=== PATIENT | female | born 1950 | race African-American/Black ===

== ENCOUNTER → 2016-07-20 | Outpatient (CLI) | payer MEDICARE, OTHER ==
--- NOTE | 2016-07-20 15:42 | KCIC ---
PROCEDURE Thyroid ultrasound. HISTORY Follow up thyroid nodule. COMPARISON Thyroid ultrasound, October 13, 2015. TECHNIQUE Real-time ultrasound imaging of the thyroid gland is performed. FINDINGS All measurements in length, AP, and transverse dimensions, respectively. The right thyroid lobe measures 5.7 x 2.3 x 2.3 cm. There is a mixed cystic and solid nodule in the upper right thyroid lobe measuring 2.6 x 1.6 x 1.3 cm. Nodule not previously seen. There is a heterogeneous solid nodule in the inferior right thyroid lobe measuring 1.3 x 1.5 x 1.1 cm. This nodule appears stable. The left thyroid lobe measures 7.9 x 4.1 x 3.3 cm. There is a heterogeneous solid nodule in the upper left thyroid lobe measuring 2.9 x 4 x 4.4 cm. Nodule likely present on prior study, not appreciated is a discrete nodule. The isthmus is enlarged measuring up to 2.6 cm. There is a nodule in the isthmus measuring 1.8 x 1.2 x 1.6 cm. This nodule is stable. IMPRESSION 1. Dominant nodule in the superior left thyroid lobe. Nodule not previously seen as a discrete nodule. Ultrasound-guided FNA is suggested. 2. Stable isthmus nodules. General recommendations for nodules 1 centimeter or greater in largest diameter: Strongly consider FNA for: - A nodule 1 cm or more in largest diameter if microcalcifications are present. - A nodule 1.5 cm or more in largest diameter if the nodule is almost entirely solid or if coarse calcifications are present. - A nodule 2 cm or more in largest diameter if the nodule is mixed solid and cystic, or is almost entirely cystic with a solid mural nodule, or has had substantial growth since prior ultrasound studies. [employer] Consensus Conference Statement, May 2005, volume 237, Issue 3. Electronically signed by: Shaheen Bello MD (Jul 20, 2016 15:40:56)
== END | disposition home or self-care (01) ==
LOC: KCIC US 12:43
PROVIDERS: ATTEND Physician Assistant Surgical
DX: E04.1 Nontoxic single thyroid nodule (principal)
CPT/HCPCS: 76536

== ENCOUNTER → 2017-02-21 | Outpatient (CLI) | payer BC ==
--- NOTE | 2017-02-21 13:45 | KCIC ---
Examination: Ultrasound soft tissue neck HISTORY: History of palpable lump for one year COMPARISON: None available Findings: There is a 2.4 x 2.2 x 1.6 cm heterogeneous lesion identified in the in the region of the palpability in the region of the neck with some vascular flow within. IMPRESSION: Complex mass with vascularity identified in the region of palpable lump in the neck. Could be enlarged lymph node or mass. Electronically signed by: Franck Barrett MD (02/21/2017 1:42 PM) [id number]
== END | disposition home or self-care (01) ==
LOC: KCIC US 13:10
PROVIDERS: ATTEND Physician Assistant Surgical
DX: R22.1 Localized swelling, mass and lump, neck (principal)
CPT/HCPCS: 76536

== ENCOUNTER → 2017-03-11 | Outpatient (CLI) | payer BC ==
[~2017-03-11] MED LIST: DULA0.75 SQ; EMPA10TA PO; IOHEXOL 300 MG/ML 100ML VIAL. IV ONE; LISI2.5T PO; SIMV10TA3 PO
--- NOTE | 2017-03-11 16:35 | KCIC ---
CT of the soft tissue neck HISTORY: Mass at the posterior neck. Palpable lump for one year. COMPARISON: Ultrasound February 21, 2017. TECHNIQUE: Standard imaging obtained after intravenous contrast. FINDINGS: There is a subcutaneous mass in the posterior lower neck, just to the left of midline. This measures 22 mm in diameter, similar size to what was measured sonographically. This demonstrates heterogeneous content, which was demonstrated to be solid on the ultrasound exam. There is diffuse enlargement of the left thyroid gland and thyroid isthmus. The left thyroid measures 7.8 cm height by 4.5 cm AP by 4.3 cm wide. The thyroid isthmus measures 2.9 cm AP diameter. Both the left lobe and the isthmus demonstrate diffuse heterogeneous internal density suspicious for mass or masses. The could also be a component of necrosis within the thyroid. The right lobe of the thyroid measures about 5.3 cm cephalocaudal by 2.4 cm AP by 1.9 cm wide. There is also heterogeneous density throughout the right lobe. The airway is slightly deviated to the right by the enlarged left thyroid. No evidence of significant lymph node enlargement. The parotid glands appear unremarkable. The right submandibular gland is small in size compared with the left. IMPRESSION: 1. Soft tissue mass at the posterior neck, to the left of midline, in the superficial tissues. This was demonstrated to be a solid mass on the prior ultrasound. 2. Enlargement of the thyroid gland, greater on the left, with multiple masses. Note that thyroid abnormalities were also described on a previous thyroid ultrasound July 20, 2016. Recommend FNA for further workup. Electronically signed by: Cole Bañuelos MD (03/11/2017 4:32 PM) [id number]
== END | disposition home or self-care (01) ==
LOC: KCIC CT 15:26
PROVIDERS: ATTEND Physician Assistant Surgical
DX: E04.9 Nontoxic goiter, unspecified (principal); R22.1 Localized swelling, mass and lump, neck
CPT/HCPCS: 70491; 82565; Q9967

== ENCOUNTER → 2018-05-11 | Outpatient (CLI) | payer BC ==
[~2018-05-11] MED LIST changes: -IOHEXOL 300 MG/ML 100ML VIAL. IV ONE
--- NOTE | 2018-05-11 13:56 | KCIC ---
CT HEAD WO CONTRAST History: Headache and dizziness, recent episode of elevated blood pressure Comparison: February 18, 2015 Technique: Noncontrast CT imaging was performed of the head. Exposure: One or more of the following individualized dose reduction techniques were utilized for this examination: 1. Automated exposure control 2. Adjustment of the mA and/or kV according to patient size 3. Use of iterative reconstruction technique. Findings: No acute extra-axial or parenchymal hemorrhage is identified. There is no significant intra-axial mass effect, midline shift, or extra-axial fluid collection. There is again minimal ill-defined low-density of the bilateral parietal white matter. The claros-white differentiation of the major vascular territories is preserved. The ventricles, sulci, and cisterns are within normal limits in size and configuration. The mastoid air cells and the visualized paranasal sinuses are aerated. No acute calvarial abnormality is identified. Impression: 1. No acute intracranial abnormality is identified. There is again mild ill-defined low-density of the biparietal white matter which may be due to chronic microvascular ischemic disease. Electronically signed by: Gaston Puente MD (05/11/2018 1:53 PM) [email or web address]
--- NOTE | 2018-05-11 15:22 | KCIC ---
Carotid doppler ultrasound History: Headache, dizziness Multiple grayscale, color, and duplex spectral analysis waveform sonographic images were acquired of the carotid, subclavian, and vertebral arteries. Comparison: None Findings: RIGHT: PSV cm/sec EDV cm/sec Common carotid artery 116 32 Maximal internal carotid artery 108 19 External carotid artery 81 Vertebral artery 48 ICA/CCA ratio 0.93 LEFT: PSV cm/sec EDV cm/sec Common carotid artery 109 27 Maximum internal carotid artery 95 21 External carotid artery 75 Vertebral artery 46 ICA/CCA ratio 0.87 Velocities used to determine stenosis are known to correlate with NASCET angiographic criteria. There is antegrade flow in the bilateral vertebral arteries. No significant stenosis is demonstrated on grayscale or color images. There is nonspecific node of the right neck not considered significantly enlarged. No significant plaque is demonstrated. Impression: 1. There is no evidence of a hemodynamically significant stenosis. Electronically signed by: Gaston Puente MD (05/11/2018 3:19 PM) [email or web address]
== END | disposition home or self-care (01) ==
LOC: KCIC CT 13:21
PROVIDERS: ATTEND Family Medicine
DX: R51 Headache (principal); R42 Dizziness and giddiness
CPT/HCPCS: 70450; 93880

== ENCOUNTER → 2018-07-27 | Outpatient (CLI) | payer BC, OTHER ==
[~2018-07-27] MED LIST changes: +IOHEXOL 300 MG/ML 100ML VIAL. IV ONE
--- NOTE | 2018-07-27 15:17 | KCIC ---
Examination: CT urogram without and with IV contrast HISTORY: History of flank pain, hematuria, renal cysts COMPARISON: 01/21/2016 MRI abdomen TECHNIQUE: Axial CT images of the abdomen pelvis were performed without and with IV contrast. Coronal and sagittal reformats are performed Exposure: One or more of the following individualized dose reduction techniques were utilized for this examination: 1. Automated exposure control 2. Adjustment of the mA and/or kV according to patient size 3. Use of iterative reconstruction technique FINDINGS: Minimal atelectasis bibasilar lungs. No evidence of free air identified in the abdomen. The visualized liver, spleen, adrenals grossly appears unremarkable. The gallbladder is mildly distended. The visualized pancreas grossly appears unremarkable. The stomach is mildly distended. The small bowel is nondilated. Appendix is normal. Feces and gas noted in the colon. Multiple sigmoid colon diverticulosis. There are multiple cystic structures identified in the bilateral kidneys the largest measuring 3 cm in the right kidney. There is a multiloculated cystic structure identified in the inferior right kidney measuring 2.1 x 1.9 cm similar to prior exam. No evidence of intrarenal collecting system calculi or hydronephrosis. The urinary bladder is mildly distended. Mild degenerative changes thoracic spine. There is a small cystic structure identified in the vaginal region measuring 1.9 cm could be a Bartholin's duct cyst. There is a fat-containing structure identified deep to the left gluteus maximums muscles measuring 3.3 cm lipoma. IMPRESSION: 1. Cystic structures likely cysts identified in the bilateral kidneys with multiloculated cystic structure identified in the inferior pole of the right kidney similar to prior exam from 2016. 2. Sigmoid colon diverticulosis. Electronically signed by: Franck Barrett MD (07/27/2018 3:13 PM) [place] [id number]
== END | disposition home or self-care (01) ==
LOC: KCIC CT 08:57
PROVIDERS: ATTEND Physician Assistant Surgical
DX: N28.89 Other specified disorders of kidney and ureter (principal); N32.89 Other specified disorders of bladder; K82.8 Other specified diseases of gallbladder; K31.89 Other diseases of stomach and duodenum; K57.30 Diverticulosis of large intestine without perforation or abscess without bleeding; D17.79 Benign lipomatous neoplasm of other sites; M47.814 Spondylosis without myelopathy or radiculopathy, thoracic region
CPT/HCPCS: 74178; 82565; Q9967

== ENCOUNTER → 2020-07-16 | Outpatient (CLI) | payer MEDICARE, OTHER ==
[~2020-07-16] MED LIST changes: -IOHEXOL 300 MG/ML 100ML VIAL. IV ONE; +SIMV10TA15 PO; -SIMV10TA3 PO
--- NOTE | 2020-07-16 10:47 | RAD ---
Examination: Ultrasound pelvis HISTORY: History of pelvic pain COMPARISON: None available Findings/ impression: The uterus is not identified likely prior hysterectomy changes. The right and left ovaries could not be identified could be prior surgical changes or postmenopausal status. The vaginal cuff grossly appe ars unremarkable. There is a cystic focus identified posterior to the urinary bladder measuring 2 cm could be a cyst or bladder diverticulum. Electronically signed by: Franck Barrett MD (07/16/2020 10:45 AM) [id number]
--- NOTE | 2020-07-18 12:36 | RAD ---
DATE: 07/16/2020 10:00 AM EXAM: MAMMO BINTA SCREENING BILATERAL HISTORY: Screening COMPARISON: 05/13/2018 Bilateral CC and MLO views of the breasts were performed. Bilateral breast tomosynthesis was performed in CC and MLO projections. This study was interpreted with the benefit of Computerized Aided Detection (CAD). FINDINGS: Breast Density: SCATTERED The breast parenchyma shows scattered fibroglandular densities. Breast parenchyma level B No suspicious masses, microcalcifications or architectural distortion is present to suggest malignancy in either breast. The visualized axillae are unremarkable. IMPRESSION: No mammographic evidence of malignancy. BI-RADS CATEGORY: 1 NEGATIVE RECOMMENDED FOLLOW-UP: 12M 12 MONTH FOLLOW-UP Annual screening mammography is recommended, unless clinically indicated sooner based on symptoms or change in physical exam. PQRS compliance statement: Patient information was entered into a reminder system with a target due date for the next mammogram. Mammography is a sensitive method for finding small breast cancers, but it does not detect them all and is not a substitute for careful clinical examination. A negative mammogram does not negate a clinically suspicious finding and should not result in delay in biopsying a clinically suspicious abnormality. "Our facility is accredited by the [employer] Mammography Program."
== END ==
LOC: US 09:21
PROVIDERS: ATTEND Family Medicine
DX: Z12.31 Encounter for screening mammogram for malignant neoplasm of breast (principal); N32.89 Other specified disorders of bladder
CPT/HCPCS: 76856; 77063; 77067